=== PATIENT | male | born 1925 | race Caucasian/White ===

== ENCOUNTER 2016-09-23 22:06 | Emergency (ER) | payer OTHER ==
--- NOTE | 2016-09-24 03:39 | ED ORDER SUMMARY ---
..... Patient: NENA GUTIERREZ OrderSheet [facility] VisitID: [id number] [address] [place] [address] 89y, M Registration Date/Time: 09/23/2016 ORDER SHEET Weight: 65.3 kg (stated) Allergies: None GENERAL ORDERS: Old Records (mitchell: Discharged today after a week hospitalization. Need to know what the status of his right leg is and why he had bladder irrigation and if there is a primary bladder problem.) (23:07 09/23/2016 Colt MCCORMICK) (Ack 23:10 IJurca ER Tech1) (0:07 KKnebel R.N.) CBC w Diff Urgent (23:08 09/23/2016 Colt MCCORMICK) (Ack 23:10 IJurca ER Tech1) (0:07 KKnebel R.N.) PT with INR Urgent (23:08 09/23/2016 Colt MCCORMICK) (Ack 23:10 IJurca ER Tech1) (0:07 KKnebel R.N.) PTT Urgent (23:08 09/23/2016 Colt MCCORMICK) (Ack 23:10 IJurca ER Tech1) (0:07 KKnebel R.N.) Bladder Scan (23:08 09/23/2016 Colt MCCORMICK) (Ack 23:10 IJurca ER Tech1) (23:24 IJurca ER Tech1) UA-Culture if indicated Urgent (01:34 09/24/2016 Colt MCCORMICK) (Ack 1:35 Ash) (4:50 omanelli R.N.) MEDICATION ORDERS: IV FLUIDS: ORDER SHEET NOTES: [Electronically signed by Tony Cramer R.N. (04:52 09/24/2016)] [Electronically signed by Cornelius Holland MD (00:03 09/28/2016)] [Electronically locked/signed by Tony Cramer R.N. (04:52 09/24/2016)]
--- NOTE | 2016-09-24 03:39 | ED NURSING NOTES ---
Clinical Report - Nurses [facility] [address] [place] [address] 09/23/2016 22:09 Patient: NENA GUTIERREZ TRIAGE Triage time 22:30 Sep 23 2016. Acuity: LEVEL 3. Chief Complaint: (PENILE BLEEDING). Alert. No acute distress. --22:41 Jillian Kemp R.N. 22:29 09/23/16. BP: 146/100. HR: 72. RR: 16. O2 saturation: 96%. Temp: 98.1 F. Pain level now: 0/10. --22:41 Jillian Kemp R.N. Weight: 65.3 kg stated. Height/Length: 69 inches Per Patient. BMI: 21.3. --22:39 Jillian Kemp R.N. Medications LINSINOPRIL 5MG , daily. --22:33 Jillian Kemp R.N. ASA Oral 81 MG, DAILY. --22:34 Jillian Kemp R.N. Tamsulosin HCl Oral (Capsule 0.4 mg) 1 capsule, daily. --22:34 Jillian Kemp R.N. Amoxicillin-Pot Clavulanate Oral 875 mg, 2x a day. --22:34 Jillian Kemp R.N. Cipro Oral (Tablet 500 mg) 1 tablet, 2x a day. --22:35 Jillian Kemp R.N. Allergies None. --22:31 Jillian Kemp R.N. History Arrived by private vehicle. Historian: patient. Accompanied by family. Onset. (1830 PM). Treatment HUMAN RESOURCES COORDINATOR: None. PAST MEDICAL HX: No history of diabetes mellitus. No history of benign prostatic hypertrophy. Immunizations: up-to-date. SOCIAL HX: Never smoker. No alcohol use or drug use. No infectious disease exposure. SELF HARM ASSESSMENT: A self harm assessment was performed. The patient answered "no" to the question "Do you have thoughts of harming or killing yourself?". NUTRITIONAL RISK ASSESSMENT: The nutritional risk assessment revealed no deficiencies. FUNCTIONAL ASSESSMENT: Functional assessment: no impairments noted. LEARNING NEEDS ASSESSMENT: The learning needs assessment revealed no barriers. ABUSE ASSESSMENT: Abuse assessment: The patient was asked "Do you feel safe in your home?". FALL RISK ASSESSMENT: Fall risk assessment completed. Risk factors identified include patient age greater than 65 years and impairment of mobility and hearing. SKIN INTEGRITY ASSESSMENT: Skin integrity risk assessment completed. No skin integrity risk identified. --22:41 Jillian Kemp R.N. PROBLEMS: Nephrolithiasis. Hypertension. --22:37 Jillian Kemp R.N. Interventions ID band on patient. To room. --22:41 Jillian Kemp R.N. PHYSICAL ASSESSMENT Ambulatory to room. GENERAL / NEURO / PSYCH: Alert. Oriented X 4. Appears in no acute distress. RESPIRATORY: Respirations not labored. CVS: Capillary refill less than 2 seconds. GI / : Abdomen nontender. Penile abnormality noted associated with blood at meatus. SKIN: Skin is warm and dry. --22:42 Jillian Kemp R.N. NURSING PROGRESS NOTES Pulse oximeter and NIBP monitor placed on patient; monitor alarms on. Patient gowned. Head of bed elevated. Two patient identifiers checked. Call light placed in reach. Side rails up x 1. Bed placed in lowest position. Brakes of bed on. Patient ready for evaluation- chart flagged. --22:42 Jillian Kemp R.N. ( Bedside bladder scan = 193ml resulted). --23:26 Henry Forde R.N. 00:15 09/24/16. BP: 141/54. HR: 79. O2 saturation: 98%. --00:15 Jillian Kemp R.N. Urine collected with return of yellow-colored clear urine. --00:44 Jillian Kemp R.N. ( pt up to bathroom in wheelchair. no complaints of additional penile bleeding. urine sample brought back to room and held). --00:45 Jillian Kemp R.N. 02:00 09/24/16. Patient ID band checked for patient name, birthdate and medical record number: patient confirmed. Clean catch urine collected with return of yellow-colored clear urine; odor is normal; sample sent to lab for urinalysis and culture. Specimen labeled in the presence of the patient. --02:22 Tony Cramer R.N. 02:15 09/24/16. BP: 154/73. HR: 76. RR: 16. O2 saturation: 99%. Pain level now: 09/15. --04:50 Tony Cramer R.N. DISPOSITION / DISCHARGE 03:50 09/24/16. BP: 150/65. HR: 77. RR: 16. O2 saturation: 100% on room air. Temp: 98 F (oral). Pain level now: 08/18. Additional comments: Uretheral Pain. --04:07 Tony Cramer R.N. Departure time: 0350. --04:07 Tony Cramer R.N. 03:50. Condition at departure: improved. No learning barriers present. Discharge instructions provided and reviewed with the patient and family (son). Reviewed medication(s) (prescription given to pt). Reviewed referral to a urologist and family practice for followup. Patient verbalized understanding. Written instructions provided in Georgian. The patient was discharged by the physician. He was discharged home and accompanied by family and son. He left the Emergency Department ambulatory and via private vehicle. Family member driving (son). --04:10 Tony Cramer R.N. Locked/Released at 09/24/2016 4:52 by Tony Cramer R.N.
--- NOTE | 2016-09-24 03:39 | ED ORDER SUMMARY ---
..... Patient: NENA GUTIERREZ OrderSheet [facility] VisitID: [id number] [address] [place] [address] 89y, M Registration Date/Time: 09/23/2016 ORDER SHEET Weight: 65.3 kg (stated) Allergies: None GENERAL ORDERS: Old Records (mitchell: Discharged today after a week hospitalization. Need to know what the status of his right leg is and why he had bladder irrigation and if there is a primary bladder problem.) (23:07 09/23/2016 Colt MCCORMICK) (Ack 23:10 IJurca ER Tech1) (0:07 KKnebel R.N.) CBC w Diff Urgent (23:08 09/23/2016 Colt MCCORMICK) (Ack 23:10 IJurca ER Tech1) (0:07 KKnebel R.N.) PT with INR Urgent (23:08 09/23/2016 Colt MCCORMICK) (Ack 23:10 IJurca ER Tech1) (0:07 KKnebel R.N.) PTT Urgent (23:08 09/23/2016 Colt MCCORMICK) (Ack 23:10 IJurca ER Tech1) (0:07 KKnebel R.N.) Bladder Scan (23:08 09/23/2016 Colt MCCORMICK) (Ack 23:10 IJurca ER Tech1) (23:24 IJurca ER Tech1) UA-Culture if indicated Urgent (01:34 09/24/2016 Colt MCCORMICK) (Ack 1:35 Ash) (4:50 omanelli R.N.) MEDICATION ORDERS: IV FLUIDS: ORDER SHEET NOTES: [Electronically signed by Tony Cramer R.N. (04:52 09/24/2016)] [Electronically signed by Cornelius Holland MD (00:03 09/28/2016)] [Electronically locked/signed by Tony Cramer R.N. (04:52 09/24/2016)]
--- NOTE | 2016-09-24 03:39 | ED CLINICAL REPORT ---
Clinical Report - Physicians/Mid Levels [facility] [address] [place] [address] 09/23/2016 22:09 Patient: NENA GUTIERREZ Time Seen: 23:12 Sep 23 2016; initial documentation. Arrived- By private vehicle. Historian- patient, family and son. CPT: ER phys charges level 4 (#[id number]). HISTORY OF PRESENT ILLNESS Chief Complaint: HEMATURIA. This started today and is still present. The problem is described as mild. No penile discharge, urinary frequency or genital lesion. He has had discomfort with urination and been voiding small amounts. Sexual history is noncontributory. Similar symptoms previously: As bad. Recent medical care: Not recently seen/assessed. REVIEW OF SYSTEMS No fever, chills, flank pain, abdominal pain or vomiting. No diarrhea, black stools, bloody stools, sore throat or chest pain. No joint pain or skin rash. The patient has had hematuria. All systems otherwise negative, except as recorded above. PAST HISTORY ( Nephrolithiasis. Hypertension.). ADDITIONAL NOTES The nursing notes have been reviewed. PHYSICAL EXAM Vital Signs: 09/23/2016 22:29 BP: 146/100. HR: 72. RR: 16. O2 saturation: 96%. Temp: 98.1 F. Pain level now: 0/10. Appearance: Alert. No acute distress. Eyes: No pale conjunctivae. ENT: Normal external inspection. Pharynx normal. Neck: Neck supple. CVS: Heart sounds normal. Respiratory: No respiratory distress. Breath sounds normal. Abdomen: Nontender. : Urethral discharge (bloody). (penis non-tender). Skin: Skin warm. Normal skin color. No rash. Extremities: Extremities exhibit normal ROM. Neuro: Oriented X 3. No motor deficit. No sensory deficit. LABS, X-RAYS, AND EKG Laboratory Tests: UA-Culture if indicated: (LEXI: 09/24/2016 01:00) ( MsgRcvd 09/24/2016 02:54) Final results Test Result Flag Units (Reference) URINE COLOR YELLOW URINE APPEARANCE CLEAR URINE GLUCOSE NEGATIVE (NEGATIVE) URINE BILIRUBIN NEGATIVE (NEGATIVE) URINE KETONE NEGATIVE (NEGATIVE) URINE SPECIFIC GRAVITY <= 1.005 L (1.010-1.030) URINE PH 6.0 (5.0-8.0) URINE PROTEIN NEGATIVE (NEGATIVE) URINE UROBILINOGEN 0.2 EU/dL (0.2-1.0) URINE NITRITE NEGATIVE (NEGATIVE) URINE BLOOD 2+ (NEGATIVE) URINE LEUK ESTERASE NEGATIVE (NEGATIVE) URINE RBC 3-5 rbc/hpf (0-1) URINE WBC 0-1 wbc/hpf (0-1) URINE EPITHELIAL CELLS 0-1 EPI/hpf (0-5) URINE BACTERIA NONE SEEN (NONE SEEN) URINE COMMENT CULT NOT INDICATED URINE CULTURES ARE SET-UP BASED ON THE FOLLOWING CRITERIA:POSITIVE NITRITEPOSITIVE LEUKOCYTE ESTERASEGREATER THAN 10 WHITE BLOOD CELLSMODERATE (2+) OR GREATER BACTERIA CBC w Diff: (LEXI: 09/23/2016 23:35) ( [facility] 09/23/2016 23:47) Final results Test Result Flag Units (Reference) WHITE BLOOD COUNT 10.2 K/uL (4.5-11.5) RED BLOOD COUNT 4.39 L M/uL (4.50-5.90) HEMOGLOBIN 13.2 L gm/dL (13.5-17.5) HEMATOCRIT 40.5 L % (41.0-53.0) MEAN CELL VOLUME 92 fL (80-100) MEAN CORPUSCULAR HGB 30 pg (26-34) MEAN CORPUSCULAR HGB CONC 33 g/dL (31-37) RED CELL DISTRIBUTION WIDTH 14.2 % (11.6-14.8) PLATELET COUNT 200 K/uL (150-400) LYMPH % 16.2 L % (25-40) MONO % 4.9 % (3-14) GRANULOCYTE % 78.9 PT with INR: (LEXI: 09/23/2016 23:35) ( [facility] 09/23/2016 23:53) Final results Test Result Flag Units (Reference) INR 1.1 (0.8-1.2) Low Intensity Therapy: INR 1.5-2.0 PT range 18.5-23.1Mod.Intensity Therapy: INR 2.0-3.0 PT range 23.1-31.5High Intensity Therapy: INR 2.5-3.5 PT range 27.4-35.5High Intensity Therapy 2: INR 3.0-4.0 PT range 31.5-39.3 APTT 31 SECONDS (24-34) . PROGRESS AND PROCEDURES Course of Care: Bleeding has stopped in the ER. Pt has clear urine at this time. Records reviewed and pt had a traumatic magaña insertion at his last hospitalization, which caused bleeding. A 3 way magaña was used to irrigated and help stop bleeding . Bleeding stopped and the magaña removed. Patient/family counseled. Disposition: Discharged. Condition: stable and improved. CLINICAL IMPRESSION Urethral injury due to prior magaña insertion as a cause for bleeding. INSTRUCTIONS Drink plenty of fluids. Warnings: Further evaluation is necessary. GENERAL WARNINGS: Return or contact your physician immediately if your condition worsens or changes unexpectedly, if not improving as expected, or if other problems arise. Your Current Medications: CONTINUE TAKING THE FOLLOWING MEDICATIONS: Amoxicillin-Pot Clavulanate Oral : 875 mg 2x a day. ASA Oral : 81 MG DAILY. Cipro Oral : Tablet 500 mg, 1 tablet 2x a day. LINSINOPRIL* : 5MG daily. Tamsulosin HCl Oral : Capsule 0.4 mg, 1 capsule daily. Prescription Medications: Pyridium 200 mg: take 1 orally every 8 hours as needed for urinary problems. Dispense six (6). No refills. Substitution is permissible. Follow-up: Follow up with a urologist in three days if not better. Understanding of the discharge instructions verbalized by patient and family. (Electronically signed by Cornelius Holland MD 09/28/2016 0:03)
--- NOTE | 2016-09-28 00:03 | ED MAR SUMMARY ---
..... Medication Administration Record [facility] [address] [place], [place] [id number] Patient: NENA GUTIERREZ Visit ID: [id number] 89y, M Weight: 65.3 kg Height/Length: 69 in BMI: 21.3 ALLERGIES: None
--- NOTE | 2016-09-28 00:03 | ED DISCHARGE INSTRUCTIONS ---
Patient: NENA GUTIERREZ General Instructions [facility] VisitID: [id number] [address] [place] [address] 89y, M Registration Date/Time: 09/23/2016 Urethral injury due to prior magaña insertion as a cause for bleeding. INSTRUCTIONS Drink plenty of fluids. Warnings: Further evaluation is necessary. GENERAL WARNINGS: Return or contact your physician immediately if your condition worsens or changes unexpectedly, if not improving as expected, or if other problems arise. Your Current Medications: CONTINUE TAKING THE FOLLOWING MEDICATIONS: Amoxicillin-Pot Clavulanate Oral : 875 mg 2x a day. ASA Oral : 81 MG DAILY. Cipro Oral : Tablet 500 mg, 1 tablet 2x a day. LINSINOPRIL* : 5MG daily. Tamsulosin HCl Oral : Capsule 0.4 mg, 1 capsule daily. Prescription Medications: Pyridium 200 mg: take 1 orally every 8 hours as needed for urinary problems. Dispense six (6). No refills. Substitution is permissible. Follow-up: Follow up with a urologist in three days if not better. Understanding of the discharge instructions verbalized by patient and family. (Electronically signed by Cornelius Holland MD 09/28/2016 0:03)
--- NOTE | 2016-09-28 00:03 | ED MED RECONCILIATION SUMMARY ---
Patient: NENA GUTIERREZ Medication Reconciliation Report [facility] VisitID: [id number] [address] [place] [address] 89y, M Registration Date/Time: 09/23/2016 Weight: 65.3 kg Height/Length: 69 in. BMI: 21.3 ALLERGIES: None The patient's Home Medications are listed below: CONTINUE TAKING THE FOLLOWING MEDICATIONS: Amoxicillin-Pot Clavulanate Oral 875 mg, 2x a day ASA Oral 81 MG, DAILY Cipro Oral (500 mg) 1 tablet, 2x a day LINSINOPRIL 5MG , daily Tamsulosin HCl Oral (0.4 mg) 1 capsule, daily The source(s) of the original Home Medication information: Not obtained. The following Medications were given to the patient in the Emergency Department: None. The following Medications were prescribed to the patient: Pyridium 200 mg: take 1 orally every 8 hours as needed for urinary problems. Dispense six (6). No refills. Substitution is permissible. -- Cornelius Holland MD
--- NOTE | 2016-09-28 00:03 | ED DISCHARGE INSTRUCTIONS ---
Patient: NENA GUTIERREZ General Instructions [facility] VisitID: [id number] [address] [place] [address] 89y, M Registration Date/Time: 09/23/2016 Urethral injury due to prior magaña insertion as a cause for bleeding. INSTRUCTIONS Drink plenty of fluids. Warnings: Further evaluation is necessary. GENERAL WARNINGS: Return or contact your physician immediately if your condition worsens or changes unexpectedly, if not improving as expected, or if other problems arise. Your Current Medications: CONTINUE TAKING THE FOLLOWING MEDICATIONS: Amoxicillin-Pot Clavulanate Oral : 875 mg 2x a day. ASA Oral : 81 MG DAILY. Cipro Oral : Tablet 500 mg, 1 tablet 2x a day. LINSINOPRIL* : 5MG daily. Tamsulosin HCl Oral : Capsule 0.4 mg, 1 capsule daily. Prescription Medications: Pyridium 200 mg: take 1 orally every 8 hours as needed for urinary problems. Dispense six (6). No refills. Substitution is permissible. Follow-up: Follow up with a urologist in three days if not better. Understanding of the discharge instructions verbalized by patient and family. (Electronically signed by Cornelius Holland MD 09/28/2016 0:03)
--- NOTE | 2016-09-28 00:03 | ED MAR SUMMARY ---
..... Medication Administration Record [facility] [address] [place], [place] [id number] Patient: NENA GUTIERREZ Visit ID: [id number] 89y, M Weight: 65.3 kg Height/Length: 69 in BMI: 21.3 ALLERGIES: None
--- NOTE | 2016-09-28 00:03 | ED MED RECONCILIATION SUMMARY ---
Patient: NENA GUTIERREZ Medication Reconciliation Report [facility] VisitID: [id number] [address] [place] [address] 89y, M Registration Date/Time: 09/23/2016 Weight: 65.3 kg Height/Length: 69 in. BMI: 21.3 ALLERGIES: None The patient's Home Medications are listed below: CONTINUE TAKING THE FOLLOWING MEDICATIONS: Amoxicillin-Pot Clavulanate Oral 875 mg, 2x a day ASA Oral 81 MG, DAILY Cipro Oral (500 mg) 1 tablet, 2x a day LINSINOPRIL 5MG , daily Tamsulosin HCl Oral (0.4 mg) 1 capsule, daily The source(s) of the original Home Medication information: Not obtained. The following Medications were given to the patient in the Emergency Department: None. The following Medications were prescribed to the patient: Pyridium 200 mg: take 1 orally every 8 hours as needed for urinary problems. Dispense six (6). No refills. Substitution is permissible. -- Cornelius Holland MD
== END 2016-09-23 22:08 | disposition home or self-care (01) ==
LOC: ED SRH 22:06
DX: T83.83XA Hemorrhage due to genitourinary prosthetic devices, implants and grafts, initial encounter (principal); I10 Essential (primary) hypertension
CPT/HCPCS: 90004; 90074; 94001; 94060; 95059

== ENCOUNTER 2017-01-02 13:32 | Outpatient (CLI) | payer OTHER ==
--- NOTE | 2017-01-02 15:31 | DIAGNOSTIC IMAGING REPORT ---
PROCEDURE: US ART LOWER EXT WITH GREGORY-B/L INDICATION: Bilateral lower extremity weeping edema (left greater than right). Assess for vascular insufficiency. Nonsmoker. No history of diabetes. TECHNIQUE: Preexercise ABIs were performed. The patient could not exercise, and as such, postexercise ABIs were not performed. Color Doppler duplex imaging of the lower extremities was performed. COMPARISON: None. FINDINGS: RIGHT LOWER EXTREMITY: There is moderate edema of the lower right lower extremity. ABIs: Pre exercise ABIs. Right posterior tibial 0.77. Right dorsalis pedis N/A. VESSELS: Moderate calcified atheromatous plaque. RIGHT LOWER EXTREMITY PEAK SYSTOLIC VELOCITIES: External iliac: Triphasic 109 cm/second. Common femoral artery: Triphasic 108 cm/second. Profunda femoral artery: Triphasic 54 cm/second. Proximal superficial femoral artery: Triphasic 122 cm/second. Mid superficial femoral artery: Monophasic 124 cm/second. Distal superficial femoral artery: Monophasic 78 cm/second. Popliteal artery: Monophasic 113 cm/second. Proximal posterior tibial artery: Monophasic 127 cm/second. Proximal anterior tibial artery: Monophasic 56 cm/second. Peroneal artery: N/A cm/second. Distal posterior tibial artery: Monophasic 82 cm/second. Dorsalis pedis artery: Monophasic 44 cm/second. LEFT LOWER EXTREMITY: There is moderate edema of the left lower extremity. ABIs: Pre excise ABIs. Left posterior tibial 0.76. Left dorsalis pedis N/A. VESSELS: Moderate calcified atheromatous changes. LEFT LOWER EXTREMITY PEAK SYSTOLIC VELOCITIES: External iliac: Monophasic 125 cm/second. Common femoral artery: Monophasic 163 cm/second. Profunda femoral artery: Biphasic 77 cm/second. Proximal superficial femoral artery: Monophasic 151 cm/second. Mid superficial femoral artery: Monophasic 128 cm/second. Distal superficial femoral artery: Monophasic 415 cm/second. Popliteal artery: Monophasic 128 cm/second. Proximal posterior tibial artery: Monophasic 158 cm/second. Proximal anterior tibial artery: Monophasic 273 cm second with probable occlusion of the mid anterior tibial artery. Peroneal artery: N/A cm/second. Distal posterior tibial artery: Monophasic 142 cm/second. Dorsalis pedis artery: Monophasic 35 cm/second. IMPRESSION: 1. 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 2. 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 2. There is evidence of moderate arterial insufficiency of the left lower extremity secondary to inflow disease (monophasic flow), multilevel atheromatous changes and trifurcation disease (including occlusion of the mid left anterior tibial artery with reconstitution).
== END 2017-01-02 23:00 | disposition home or self-care (01) ==
LOC: US SRH 13:32
DX: I73.9 Peripheral vascular disease, unspecified (principal)